=== PATIENT | female | born 1960 | race Caucasian/White ===

== ENCOUNTER 2019-06-06 08:46 | Outpatient (CLI) | payer MEDICARE, OTHER ==
[2019-06-06] MEDS ORDERED: PRED10TA PO (09:13)
[2019-06-06] MEDS ORDERED: TRAZ-175 PO (09:13)
[2019-06-06] MEDS ORDERED: LINA145C PO (09:13)
[2019-06-06] MEDS ORDERED: FLUD0.1T PO (09:13)
[2019-06-06] MEDS ORDERED: FOLI-17 PO (09:13)
[2019-06-06] MEDS ORDERED: Optifiber PO (09:13)
[2019-06-06] MEDS ORDERED: ASPI325T17 PO (09:13)
[2019-06-06] MEDS ORDERED: IBUP-1223 PO (09:13)
[2019-06-06] MEDS ORDERED: GABA600T7 PO (09:13)
[2019-06-06] MEDS ORDERED: ADAL40KI INJ (09:13)
[2019-06-06] MEDS ORDERED: HYDR-3240 PO (09:13)
[2019-06-06] MEDS ORDERED: MULT-257 PO (09:13)
[2019-06-06] MEDS ORDERED: TIZA4CAP PO (09:13)
[2019-06-06] MEDS ORDERED: HYDR200T72 PO (09:13)
[2019-06-06] MEDS ORDERED: FAMO20TA7 PO (09:13)
[2019-06-06] MEDS ORDERED: morphine pain pump (09:13)
[2019-06-06] MEDS ORDERED: MIRA50TA PO (09:13)
[2019-06-06] MEDS ORDERED: OMEP40CA42 PO (09:13)
[2019-06-06] MEDS ORDERED: laxaclear PO (09:13)
[2019-06-06] MEDS ORDERED: LEVO100T PO (09:13)
== END 2019-06-06 23:59 | disposition home or self-care (01) ==
LOC: STAR 08:46
PROVIDERS: ATTEND Urology
DX: M43.22 Fusion of spine, cervical region (principal); M50.30 Other cervical disc degeneration, unspecified cervical region
CPT/HCPCS: 72040

== ENCOUNTER 2019-06-13 08:02 | Day surgery (SDC) | payer MEDICARE, OTHER ==
[~2019-06-13] VITALS: Ht 165.1 cm; Wt 64.1 kg
[~2019-06-13 08:02] MED LIST: ADAL40KI INJ; ASPI325T17 PO; FAMO20TA7 PO; FLUD0.1T PO; FOLI-17 PO; GABA600T7 PO; HYDR-3240 PO; HYDR200T72 PO; IBUP-1223 PO; LEVO100T PO; LINA145C PO; MIRA50TA PO; MULT-257 PO; OMEP40CA42 PO; Optifiber PO; PRED10TA PO; TIZA4CAP PO; TRAZ-175 PO; laxaclear PO; morphine pain pump
[2019-06-13 08:44] VITALS: BP 160/88
[2019-06-13] MEDS ORDERED: LACTATED RINGERS 1,000 ML IV SCH (08:46)
[2019-06-13] MEDS ORDERED: FENTANYL PF 100 MCG/2ML IV PRN (09:00)
[2019-06-13] MEDS ORDERED: OXYcodone 5 MG/5 ML ORAL.SOL UDC PO PRN (09:00)
[2019-06-13] MEDS ORDERED: PROMETHAZINE 25 MG/ML, 1ML IV PRN (09:00)
[2019-06-13] MEDS ORDERED: ACETAMINOPHEN 500 MG TABLET PO ONE (09:00)
[2019-06-13] MEDS ORDERED: hydrALAzine 20 MG/ML, 1ML IV PRN (09:00)
[2019-06-13] MEDS ORDERED: MEPERIDINE/PF 25MG/ML,1ML IVPush PRN (09:00)
[2019-06-13] MEDS ORDERED: HALOPERIDOL 5 MG/ML IV PRN (09:00)
[2019-06-13] MEDS ORDERED: FENTANYL PF 250 MCG/5ML ONE (09:18)
[2019-06-13] MEDS ORDERED: MIDAZOLAM 1 MG/ML, 2ML ONE (09:18)
[2019-06-13] MEDS ORDERED: HYDROCORTISONE 100 MG INJ. ONE (09:49)
[2019-06-13] MEDS ORDERED: EPINEPHRINE 1 MG/ML, 1ML ONE (09:57)
[2019-06-13] MEDS ORDERED: BUPIVACAINE/PF 0.25% ONE (09:57)
[2019-06-13] MEDS ORDERED: NEOMY/POLYMYXIN B GU IRR. 1 ML ONE (10:05)
[2019-06-13] MEDS ORDERED: GENTAMICIN 80 MG/2 ML ONE (10:05)
[2019-06-13] MEDS ORDERED: BACITRACIN 50,000 UNIT ONE (10:05)
[2019-06-13] MEDS ORDERED: GLYCOPYRROLATE 0.2MG/1ML, 5ML ONE (11:06)
[2019-06-13] MEDS ORDERED: ROCURONIUM 10MG/ML,5ML ONE (11:06)
[2019-06-13] MEDS ORDERED: CEFAZOLIN 1,000 MG ONE (11:06)
[2019-06-13] MEDS ORDERED: SUCCINYLCHOLINE 20 MG/ML, 10ML ONE (11:06)
[2019-06-13] MEDS ORDERED: DEXAMETHASONE 4 MG/ML, 1ML ONE (11:06)
[2019-06-13] MEDS ORDERED: PROPOFOL 10 MG/ML, 20ML ONE (11:06)
[2019-06-13] MEDS ORDERED: ONDANSETRON 2MG/ML, 2ML ONE (11:06)
[2019-06-13] MEDS ORDERED: NEOSTIGMINE 1 MG/ML, 10ML ONE (11:06)
[2019-06-13] MEDS: HYDROmorphone 2 MG/ML, 1ML IVPush PRN ×2 (11:30→12:00)
[2019-06-13] MEDS ORDERED: ONDANSETRON 2MG/ML, 2ML IV PRN (11:30)
[2019-06-13] MEDS ORDERED: OXYcodone 5 MG/5 ML ORAL.SOL UDC ONE (11:33)
[2019-06-13] MEDS ORDERED: HYDROmorphone 1 MG/ML, 1ML INJ ONE (11:33)
[2019-06-13] MEDS: LABETALOL 5MG/ML, 20ML IV PRN ×2 (11:40→12:00)
== END 2019-06-13 11:30 | disposition home or self-care (01) ==
LOC: OR 08:02 → OUT 11:30
PROVIDERS: ATTEND Urology
DX: N39.3 Stress incontinence (female) (male) (principal); N32.81 Overactive bladder; I12.9 Hypertensive chronic kidney disease with stage 1 through stage 4 chronic kidney disease, or unspecified chronic kidney disease; N18.2 Chronic kidney disease, stage 2 (mild); K21.9 Gastro-esophageal reflux disease without esophagitis; E03.9 Hypothyroidism, unspecified; E78.00 Pure hypercholesterolemia, unspecified; Z87.440 Personal history of urinary (tract) infections; Z90.710 Acquired absence of both cervix and uterus; Z98.890 Other specified postprocedural states
CPT/HCPCS: 57288; C1771; J0171; J0330; J0690; J1100; J1170; J1720; J2250; J2405; J2704; J3010; J3490; J7120; J2710; J1580